=== PATIENT | female | born 1970 | race Caucasian/White ===

== ENCOUNTER 2021-08-17 04:12 | Day surgery (SDCO) | payer OTHER ==
[~2021-08-17] VITALS: Ht 154.9 cm; Wt 85.4 kg
[~2021-08-17 04:12] MED LIST: ADIPEX-P37.5 M1 PO; COLACE100 MG PO; DULERA 200 MCG8.8 GM INH; LEVAQUIN750 MG PO; LISINOPRIL-HCT1 EACH PO; METRONIDAZOLE500 MG PO; MIRALAX17 GM PO; SENOKOT8.6 MG PO; VOLTAREN **OUT75 MG PO; WELLBUTRIN XL300 MG PO; ZOFRAN4 MG PO; ZPAK PO
[2021-08-17 04:59] LABS: BASOPHIL 0.4 % (0-2); EOSINOPHIL 0.4 % (0-5); HCT 43.9 % (37.0-47.0); HGB 14.3 g/dl (12.5-16.0); LYMPHOCYTE 22.2 % (15-48); MCH 30.2 pg (25.0-31.0); MCHC 32.6 g/dL (32.0-36.0); MCV 92.6 fL (78.0-100.0); MONOCYTE 6.6 % (0-12); MPV 10.1 fL (6.0-9.5); NRBC 0; PLT 342 K/uL (150-400); RBC 4.74 M/uL (4.20-5.40); RDW 13.8 % (11.5-14.0); WBC 11.2 K/uL (4.0-10.5)
[2021-08-17] MEDS ORDERED: AZITHROMYCIN250 MG PO (06:43)
[2021-08-17] MEDS ORDERED: ZOFRAN4 M1 PO (06:44)
[2021-08-17 06:55] LABS: BILIRUBIN NEGATIVE (NEGATIVE); BLOOD TRACE-INTACT Ery/uL (NEGATIVE); CLARITY CLEAR (CLEAR); COLOR YELLOW (YELLOW); GLUCOSE (U) NORMAL (NORMAL); LEUKOCYTES NEGATIVE Leu/uL (NEGATIVE); NITRITE NEGATIVE (NEGATIVE); PROTEIN NEGATIVE (NEGATIVE); UROBILINOGEN 0.2 mg/dL (0.2-1.0)
[2021-08-17 06:55] LABS: ALBUMIN 4.2 g/dL (3.4-5.0); CREATININE 0.83 mg/dL (0.51-0.95); TOTAL PROTEIN 8.2 g/dL (6.4-8.2)
[2021-08-17 06:56] LABS: BILIRUBIN - TOTAL 0.5 mg/dL (0.2-1.0)
[2021-08-17 07:25] LABS: BACTERIA 1+
[2021-08-17] MEDS ORDERED: DULERA 200 MCG8.8 GM INH (08:35)
[2021-08-17] MEDS ORDERED: SAXENDA SC (08:38)
[2021-08-17] MEDS ORDERED: BUSPAR5 MG PO (08:39)
--- NOTE | 2021-08-17 16:05 | NUR ---
08/17 Ms. Isaac lives at home with her spouse. They are retired. She is independent in the home and community. Ms. Isaac has a family member dealing with addiction. She was educated to [employer], [place], and couneling services.
[2021-08-18 07:16] LABS: BASOPHIL 0.6 % (0-2); EOSINOPHIL 2.7 % (0-5); HCT 37.5 % (37.0-47.0); HGB 11.9 g/dl (12.5-16.0); LYMPHOCYTE 30.9 % (15-48); MCH 30.1 pg (25.0-31.0); MCHC 31.7 g/dL (32.0-36.0); MCV 94.7 fL (78.0-100.0); MONOCYTE 7.9 % (0-12); MPV 9.9 fL (6.0-9.5); NEUTROPHIL 57.8 % (41-80); NRBC 0; PLT 264 K/uL (150-400); RBC 3.96 M/uL (4.20-5.40); RDW 13.7 % (11.5-14.0); WBC 6.7 K/uL (4.0-10.5)
[2021-08-18 07:45] LABS: CREATININE 0.82 mg/dL (0.51-0.95)
--- NOTE | 2021-08-19 00:22 | NUR ---
PT STATES WHILE HER STOOLS REMAIN LOOSE & SHE CONTINUES TO HAVE BLOOD IN THEM THAT THE BLOOD IS LESSONING. FURTHERMORE, PT REPORTS FEELING "BETTER TODAY".
[2021-08-19 08:42] LABS: HCT 37.6 % (37.0-47.0); MCH 29.9 pg (25.0-31.0); MCHC 31.9 g/dL (32.0-36.0); MCV 93.8 fL (78.0-100.0); RBC 4.01 M/uL (4.20-5.40); RDW 13.5 % (11.5-14.0); WBC 6.2 K/uL (4.0-10.5)
[2021-08-19 08:55] LABS: BUN/CREAT RATIO (CALC) 12.2 RATIO; CREATININE 0.82 mg/dL (0.51-0.95); POTASSIUM 3.7 mmol/L (3.5-5.1)
[2021-08-19] MEDS ORDERED: LEVAQUIN750 MG PO (10:25)
[2021-08-19] MEDS ORDERED: NORCO 5-325 TA1 EACH PO (10:25)
[2021-08-19] MEDS ORDERED: ZOFRAN4 M1 PO (10:25)
[2021-08-20] MEDS ORDERED: PROMETHEGA12.5 MG/SU PR (16:21)
== END 2021-08-19 12:00 | disposition home or self-care (01) ==
LOC: FER 04:12 → FMS 07:08
PROVIDERS: Emergency Medicine; Internal Medicine; ADMIT Internal Medicine
DX: K51.50 Left sided colitis without complications (principal); I10 Essential (primary) hypertension; J45.909 Unspecified asthma, uncomplicated; M41.9 Scoliosis, unspecified; G47.33 Obstructive sleep apnea (adult) (pediatric); Z90.49 Acquired absence of other specified parts of digestive tract; Z20.822 Contact with and (suspected) exposure to COVID-19; Z88.6 Allergy status to analgesic agent
CPT/HCPCS: 36415; 80048; 80053; 81001; 83690; 85025; 87045; 87046; 87449; G0378; J1170; J1956; J2405; J7030; U0002

== ENCOUNTER 2021-08-20 11:46 | Emergency (ER) | payer OTHER ==
[~2021-08-20 11:46] MED LIST changes: +AZITHROMYCIN250 MG PO; +BUSPAR5 MG PO; +NORCO 5-325 TA1 EACH PO; +SAXENDA SC; +ZOFRAN4 M1 PO
[2021-08-20 15:27] LABS: BASOPHIL 0.4 % (0-2); EOSINOPHIL 1.1 % (0-5); HCT 46.4 % (37.0-47.0); HGB 15.3 g/dl (12.5-16.0); LYMPHOCYTE 8.9 % (15-48); MCH 30.3 pg (25.0-31.0); MCV 91.9 fL (78.0-100.0); MONOCYTE 3.8 % (0-12); NEUTROPHIL 85.4 % (41-80); NRBC 0; PLT 316 K/uL (150-400); RBC 5.05 M/uL (4.20-5.40); RDW 13.7 % (11.5-14.0); WBC 8.1 K/uL (4.0-10.5)
[2021-08-20 15:45] LABS: INR 1.08 (0.9-1.2); PROTHROMBIN TIME 13.4 SECONDS (11.8-13.4)
[2021-08-20 15:47] LABS: ALBUMIN 4.1 g/dL (3.4-5.0); BILIRUBIN - TOTAL 0.5 mg/dL (0.2-1.0); BUN/CREAT RATIO (CALC) 11.9 RATIO; CREATININE 0.84 mg/dL (0.51-0.95); GLOBULIN (CALCULATION) 4.4 g/dL; POTASSIUM 3.7 mmol/L (3.5-5.1); TOTAL PROTEIN 8.5 g/dL (6.4-8.2)
[2021-08-20] MEDS ORDERED: PROMETHEGA12.5 MG/SU PR (16:21)
== END 2021-08-20 17:01 | disposition home or self-care (01) ==
LOC: FER 11:46
PROVIDERS: Emergency Medicine
DX: R11.2 Nausea with vomiting, unspecified (principal); Z88.8 Allergy status to other drugs, medicaments and biological substances
CPT/HCPCS: 36415; 80053; 83690; 85025; 85610; J1885; J2405; J7030